=== PATIENT | male | born 1980 | race Two or more races ===

== ENCOUNTER 2024-08-13 17:22 | Emergency (ER) | payer MEDICAID, SELFPAY ==
[2024-08-13 17:34] VITALS: BP 159/101; PULSE 111; RESP 20; TEMP 37; O2SAT 95
--- NOTE | 2024-08-13 17:41 | XR_ITS ---
Examination: CT thoracic spine, without contrast. 2-D sagittal reconstructions. 2-D coronal reconstructions. 3-D reconstructions. Date and time of exam:August 13, 2024 1838 hours INDICATIONS: Injury to the back for months ago with persistent back pain CTDI: vol (mGy):35.5 DLP: (mGycm):1339 Technique: Multiple 1.25 mm axial sections of the thoracic spine have been obtained. 2-D sagittal and coronal reconstructions have been obtained. 3-D reconstructions have been obtained. Low dose protocols were performed. One or more of the following dose reduction techniques were used; automated exposure control, adjustment of the mA and/or KV according to patient size, use of iterative reconstruction technique. Findings: Adequate alignment thoracic vertebral bodies on the lateral view Moderate disc narrowing mid dorsal interspaces No thoracic fracture Thoracic pedicles, laminae, transverse and posterior spinous processes are intact No focal thoracic disc protrusion IMPRESSION: No thoracic fracture Moderate diffuse mid dorsal thoracic degenerative disc disease Elective MRI thoracic spine without contrast follow up would be preferable in assessing for spinal stenosis
--- NOTE | 2024-08-13 17:41 | XR_ITS ---
Examination: CT lumbar spine, without contrast. 2-D sagittal reconstructions. 2-D coronal reconstructions. 3-D reconstructions. Date and time of exam:August 13, 2024 1838 hours INDICATIONS: Injury to lower back 4 months ago with lower back pain CTDI: vol (mGy):36.8 DLP: (mGycm):1133 Technique: Multiple 1.25 mm axial sections of the lumbar spine without intravenous contrast have been obtained. 2-D sagittal and coronal reconstructions have been obtained. 3-D reconstructions have been obtained. Low dose protocols were performed. One or more of the following dose reduction techniques were used; automated exposure control, adjustment of the mA and/or KV according to patient size, use of iterative reconstruction technique. Findings: The images are significantly degraded by patient motion No vertebral body compression fracture Moderate to advanced disc narrowing L4-L5, L5-S1 L4-L5 moderate overall spinal stenosis, axial image 87, 4 mm central lumbar disc bulge, facet arthropathy and thickening of ligamentum flavum with mild to moderate L4 ganglionic compression IMPRESSION: Limited study secondary to patient motion No lumbar fracture noted Moderate to advanced degenerative disc disease L4-L5, L5-S1 L4-L5 moderate overall spinal stenosis, including bilateral L4 ganglionic compression, MRI lumbar spine without contrast follow-up would best assess full extent of acquired soft tissue spinal stenosis
[2024-08-13] MEDS: KETOROLAC INJ 30 MG/ML VIAL IM (17:53)
--- NOTE | 2024-08-13 19:29 | EDNOTE_ITS ---
ED Back Injury Pain RME/HPI General Chief Complaint: Back Pain/Injury Stated Complaint: BACK PAIN X 3-4 MOS Time Seen by Provider: 08/13/24 17:26 Arrival date/time: 08/13/24 17:22 43-year-old male presents emergency department today complaints of lower and mid back pain ongoing for months has not yet been seen by his PCP. Patient ports no fever nausea vomiting no dysuria no saddle anesthesia or loss of bowel or bladder Limitations: no limitations Related Data Previous Rx's ?Medication ?Instructions ?Recorded lisinopril 20 mg tablet 10 mg (1/2 x 20 mg) PO QDAY #30 12/15/15 tabs docusate sodium 100 mg capsule 100 mg PO BID #50 caps 06/21/19 (Colace) hydrocodone 5 mg-acetaminophen 325 1 tab PO Q6H PRN pa in #25 tabs 20 mg tablet (Boissevain) ibuprofen 600 mg tablet 600 mg PO Q8HR PRN pain (sca le 06/21/19 score 4-6) #20 tabs cyclobenzaprine 10 mg tablet 10 mg PO TID PRN muscle s pasm 10 08/13/24 days #30 tab-caps ibuprofen 800 mg tablet 800 mg PO TID PRN pain #30 t abs 08/13/24 Allergies Allergy/AdvReac Type Severity Reaction Status Date / Time No Known Allergies Allergy Verified 08/13/24 17:26 Review of Systems Review of Systems Systems Reviewed: All systems reviewed, normal except as documented Constitutional Constitutional: Reports system reviewed and no additional complaints, except as documented, Denies fever(s) and Denies headache(s) Eyes Eyes: Reports system reviewed and no additional complaints, except as documented and Denies blurry vision ENT Ears, Nose, Mouth, and Throat: Reports system reviewed and no additional complaints, except as documented, Denies headache(s), Denies nasal congestion and Denies nasal discharge Cardiovascular Cardiovascular: Reports system reviewed and no additional complaints, except as documented, Denies chest pain and Denies dyspnea Respiratory Respiratory: Reports system reviewed and no additional complaints, except as documented, Denies chest congestion, Denies cough and Denies dyspnea Gastrointestinal Gastrointestinal: Reports system reviewed and no additional complaints, except as documented and Denies abdominal pain Musculoskeletal Musculoskeletal: Reports system reviewed and no additional complaints, except as documented, Reports back pain, Denies numbness, Reports stiffness and Denies tingling Integumentary/Breasts Skin/Breast: Reports system reviewed and no additional complaints, except as documented and Denies rash Neurologic Neurologic: Reports system reviewed and no additional complaints, except as documented, Reports as per HPI, Denies headache(s), Denies numbness and Denies tingling Past Medical History Past Medical History NEUROLOGIC: Negative Neurological Disorders or Seizures CARDIAC: Positive Cardiac Disorders, Hypercholesterolemia (diet controlled) and Hypertension (po med); Negative Congestive Heart Failure RESPIRATORY: Negative Chronic Obstructive Pulmonary Disease (COPD) GASTROINTESTINAL: Positive Gastrointestinal Disorders (umbilical hernia for this procedure), Pancreatitis and Obesity; Negative Hepatitis or Colorectal Cancer GENITOURINARY: Negative Genitourinary Disorders, Renal Disease or Prostate Cancer REPRODUCTIVE: Negative Breast Cancer, Genital Herpes, Gonorrhea, Syphilis or Testicular Cancer MUSCULOSKELETAL: Positive Musculoskeletal Disorders; Negative Bone Cancer ENDOCRINE: Negative Endocrine Disorders, Diabetes Mellitus Type 1 or Diabetes Mellitus Type 2 HEMATOLOGIC: Negative Blood Disorders, Anemia, Leukemia, Hemophilia, Thalassemia, Sickle Cell Disease or Clotting Problems OTHER HISTORY: Positive Chicken Pox; Negative Hospitalization, Autoimmune Disease, Down Syndrome, Developmental Delay, Shingles, Falls, Blood Transfusions, Blood Transfusion Reaction, Anesthesia Reactions, Organ Transplant, Chemotherapy, Radiation Therapy, Hyperbaric Therapy, MRSA, VRSA, Vancomycin-Resistant Enterococci, Human Immunodeficiency Virus (HIV), Measles, Mumps, Rubella (Korean Measles), Pertussis, Clostridium Difficile, Cancer, Breast Cancer, Colorectal Cancer, Lung Cancer, Prostate Cancer or Testicular Cancer Family History FAMILY HISTORY: Negative Family Cardiac Disorders Surgical History SURGICAL: Negative Vasectomy or Organ Transplant Social History SMOKING STATUS: Never smoker ED Exam General Limitations: Present no limitations General appearance: Present alert and in no apparent distress Head Head exam: Present atraumatic Eye Eye exam: Present normal appearance, PERRL and EOMI ENT ENT exam: Present normal exam, normal oropharynx and mucous membranes moist Neck Neck exam: Present normal inspection, full ROM and trachea midline Chest Chest inspection: Present normal inspection and symmetric chest wall rise Respiratory Respiratory exam: Present normal lung sounds bilaterally Cardiovascular Cardiovascular exam: Present regular rate, normal rhythm and normal heart sounds Abdominal Exam Abdominal exam: Present soft and normal bowel sounds; Absent distention, tenderness, guarding, rebound or rigidity Extremities Exam Extremities exam: Present normal inspection and full ROM Back Exam Back exam: Present normal inspection, full ROM and tenderness; Absent CVA tenderness (R), CVA tenderness (L), muscle spasm or paraspinal tenderness Neurological Exam Neurological exam: Present alert, oriented X3 and CN II-XII intact Psychiatric Psychiatric exam: Present normal affect and normal mood Skin Skin exam: Present warm, dry, intact and normal color Course Quality Measures none Orders Category Date Time Status CT lumbar spine wo con Stat Exams 08/13/24 17:[address] thoracic spine wo con Stat Exams 08/13/24 17:41 Completed Ketorolac Inj [Toradol Inj] Med 08/13/24 17:41 Discontinued 30 mg IM X1 ONE Vital Signs Vital signs: Vital Signs Temperature 98.6 F 08/13/24 17:34 Pulse Rate 111 H 08/13/24 17:34 Respiratory Rate 20 08/13/24 17:34 Blood Pressure 159/101 H 08/13/24 17:34 Pulse Oximetry (%) 95 08/13/24 17:34 Oxygen Delivery Method Room Air 08/13/24 17:34 O2 saturation 95% room air within the limits Back Pain / Injury MDM Narrative MDM Narrative:: 43-year-old male presents emergency department today complaints of lower and mid back pain ongoing for months has not yet been seen by his PCP. Patient ports no fever nausea vomiting no dysuria no saddle anesthesia or loss of bowel or bladder On exam patient well-appearing patient does not appear ill or toxic in no acute distress Imaging obtained no acute emergent findings noted Patient given copy of CT reports instructed to follow-up with his PCP in order get outpatient MRI for worsening symptoms or concerns return to the ER immediately Patient walks steady gait Patient discharged home in no distress to follow-up with primary care doctor in the next 24 to 48 hours and for any worsening symptoms to return to the ER immediately Patient data External records reviewed:: [facility] previous records Clinical information provided by:: patient Social determinants that could affect healthcare access:: none Patient has the following chronic illnesses:: None How is presenting disease/condition affected by chronic disease/condition?: no chronic disease Evaluation data The following diagnostics were reviewed and interpreted by me:: radiology exam(s) Lab and/or radiology exams considered but not ordered:: Radiology obtain Interpretation Summary: Reviewed by me Medications / Prescriptions Medications or Prescriptions considered but not ordered:: Given Medication administrations:: Medication Administration History Discontinued Medications Ketorolac Tromethamine (Ketorolac Inj 30 Mg/Ml Vial) 30 mg IM X1 ONE Stop: 08/13/24 17:42 Last Admin: 08/13/24 17:53 Dose: 30 mg Documented By: KF Given Consultations Consultation(s) initiated? (list below): No Diagnosis Differential diagnosis back pain/injury: lumbar radiculopathy, strain of lumbar region and thoracic back pain Most likely diagnosis given after review of the tests above:: Back pain Admission Indicated Admission indicated?: not indicated Admission Request Was there a request for admission?: No Disposition Plan Disposition Plan: Discharge Discharge Attestation Discharge Attestation: The patient and all family members were given an opportunity to ask questions and understood the discharge instructions. Discharge instructions specifically effects, indications for sooner follow up or return to the emergency department, and the expected course of current diagnosis. Patient condition: Stable Discharge Plan Plan Patient Disposition: HOME (Self Care) Discharge Disposition comment: Stable Prescriptions/Referrals Prescriptions/Med Rec: New cyclobenzaprine 10 mg tablet 10 mg PO TID PRN (Reason: muscle spasm) 10 Days Qty: 30 0RF ibuprofen 800 mg tablet 800 mg PO TID PRN (Reason: pain) Qty: 30 0RF No Action lisinopril 20 MG tablet 10 mg PO QDAY Qty: 30 0RF hydrocodone-acetaminophen [Boissevain] 5-325 mg tablet 1 tab PO Q6H MDD 5 PRN (Reason: pain) Qty: 25 0RF docusate sodium [Colace] 100 mg capsule 100 mg PO BID Qty: 50 0RF ibuprofen 600 mg tablet 600 mg PO Q8HR PRN (Reason: pain (scale score 4-6)) Qty: 20 0RF Referrals: No Primary/Family,Physician [Primary Care Provider] - In 1 week Problem List Clinical Impression: Back pain, Spinal stenosis, DDD (degenerative disc disease) Patient/Caregiver Discharge Instructions Education Materials: Back Safety Bed Additional Instructions: Please follow-up with PCP have an outpatient MRI for worsening symptoms or concerns return immediately Print Language: Upper Sorbian Stand Alone Forms: Suzanne Award Info., Patient Portal Info Letter PA/COMPUTER TECHNICAL SUPPORT SPECIALIST Supervising Physician PA/COMPUTER TECHNICAL SUPPORT SPECIALIST Supervising Physician: Dr. bear
[2024-08-13 19:37] VITALS: BP 132/86; PULSE 109; RESP 20; TEMP 36.9; O2SAT 96
== END 2024-08-13 19:57 | disposition home or self-care (01) ==
PROVIDERS: Emergency Provider Emergency Medicine
DX: M48.061 Spinal stenosis, lumbar region without neurogenic claudication (principal); M51.34 Other intervertebral disc degeneration, thoracic region; M51.370 Other intervertebral disc degeneration, lumbosacral region with discogenic back pain only; M51.360 Other intervertebral disc degeneration, lumbar region with discogenic back pain only
CPT/HCPCS: 72128; 72131; 96372; 99284; J1885